=== PATIENT | female | born 1940 | race Caucasian/White ===

== ENCOUNTER 2017-05-13 11:35 | Emergency (ER) | payer MEDICARE, OTHER ==
--- NOTE | 2017-05-13 11:48 | EDM.PDOC ---
<IbethvivianShakila Christiano - Last Filed: 05/13/17 13:21> ED HPI GENERAL MEDICAL PROBLEM - General Chief Complaint: Chest Pain Stated Complaint: SOB Time Seen by Provider: 05/13/17 11:40 Source of Information: Reports: Patient History Limitations: Reports: No Limitations - History of Present Illness INITIAL COMMENTS - FREE TEXT/NARRATIVE: c/o intermittent chest pain for past month , feel SOB at times, and heart racing , Diaphoretic last night while doing dishes last evening. Reported had contacted clinic this am and was told to come to ER, Patient unsure of current medications, and forgot medications at home. No nausea. Ate muffin in car wnroute. Has not taken insulin this am. Onset: Other (month) Location: Reports: Chest Context: Reports: Activity Associated Symptoms: Reports: Diaphoresis (last diamond) Mid-Sternal Chest Pain Score (Numeric/FACES): 2 - Related Data Allergies Allergy/AdvReac Type Severity Reaction Status Date / Time calcium Allergy Muscle Verified 05/13/17 13:03 Aches formaldehyde Allergy Seizure Verified 05/13/17 11:46 hydromorphone Allergy Hallucinati Verified 05/13/17 13:03 ons insulin detemir Allergy Rash Verified 05/13/17 13:03 [From Levemir] Iodinated Contrast- Oral and Allergy Other Verified 05/13/17 13:03 IV Dye mold Allergy Cannot Verified 05/13/17 11:46 Remember sodium phosphate Allergy Cannot Verified 05/13/17 13:03 Remember amoxicillin AdvReac Diarrhea Verified 05/13/17 13:03 tetracycline AdvReac Diarrhea Verified 05/13/17 13:03 Home Meds: Home Meds Fluticasone Propionate [Flovent] 2 spray MAHAMED BID 08/10/15 [History] Isosorbide Mononitrate [Isosorbide Mononitrate ER] 60 mg PO DAILY 08/10/15 [ History] Metoprolol Succinate [Toprol XL] 25 mg PO DAILY 08/10/15 [History] Omeprazole 20 mg PO BID PRN 08/10/15 [History] Pravastatin [Pravachol] 20 mg PO BEDTIME 08/10/15 [History] Venlafaxine HCl [Venlafaxine ER] 2 cap PO BEDTIME 08/10/15 [History] Acetaminophen [Acetaminophen 8 Hour] 650 mg PO BID 05/13/17 [History] Acetaminophen with Codeine [Tylenol with Codeine #3 Tablet] 1 - 2 each PO Q6H PRN 05/13/17 [History] Albuterol [IMW: Albuterol HFA] 2 puff INH QID 05/13/17 [History] Fenofibrate Nanocrystallized [Fenofibrate] 48 mg PO DAILY 05/13/17 [History] Insulin Aspart [Novolog] 8 - 12 unit SQ TID 05/13/17 [History] Insulin Glargine,Hum.Rec.Anlog [Lantus Solostar] 30 unit SQ DAILY 05/13/17 [ History] Loperamide [Imodium] 1 cap PO BID PRN 05/13/17 [History] Loratadine [Claritin] 10 mg PO DAILY 05/13/17 [History] Magnesium Oxide 200 mg PO DAILY 05/13/17 [History] Multivitamin [Multivitamins] 1 each PO DAILY 05/13/17 [History] Nitroglycerin [Nitrostat] 0.4 mg SL ASDIRECTED PRN 05/13/17 [History] [place]-3 Fatty Acids [Maxepa] 1,000 mg PO DAILY 05/13/17 [History] Pramipexole [Mirapex] 0.5 mg PO BEDTIME 05/13/17 [History] Valsartan/Hydrochlorothiazide [Valsartan-Hctz 160-12.5 mg Tab] 1 each PO DAILY 05/13/17 [History] Vitamin B Complex 1 each PO DAILY 05/13/17 [History] Social & Family History - Tobacco Use Smoking Status *Q: Never Smoker Second Hand Smoke Exposure: No - Caffeine Use Caffeine Use: Reports: Coffee - Recreational Drug Use Recreational Drug Use: No ED ROS GENERAL - Review of Systems Constitutional: Reports: No Symptoms HEENT: Reports: No Symptoms Respiratory: Denies: Shortness of Breath, Wheezing Cardiovascular: Reports: Chest Pain, Dyspnea on Exertion, Orthopnea, Palpitations Endocrine: Reports: High Glucose GI/Abdominal: Denies: No Symptoms Musculoskeletal: Reports: Other (ntermittent fibromyalgia pains) Skin: Reports: No Symptoms Neurological: Reports: No Symptoms Psychiatric: Reports: Anxiety ED EXAM, GENERAL - Physical Exam Exam: See Below Exam Limited By: No Limitations General Appearance: Alert, No Apparent Distress, Anxious Eye Exam: Bilateral Eye: PERRL Nose: Normal Inspection Throat/Mouth: Normal Inspection Head: Atraumatic, Normocephalic Neck: Normal Inspection Respiratory/Chest: No Respiratory Distress, Lungs Clear Cardiovascular: Normal Peripheral Pulses, Regular Rate, Rhythm (monitor junctional rate 58-60). No: Systolic Murmur GI/Abdominal: Normal Bowel Sounds, Soft, Non-Tender Back Exam: Normal Inspection, Full Range of Motion Neurological: Alert, Oriented Psychiatric: Anxious, Flat Affect Skin Exam: Warm, Dry, Intact, Normal Color Course - Vital Signs Last Recorded V/S: Last Vital Signs Temp 35.5 C 05/13/17 11:39 Pulse 54 L 05/13/17 13:06 Resp 20 05/13/17 13:06 BP 118/59 L 05/13/17 13:06 Pulse Ox 95 05/13/17 13:06 - Orders/Labs/Meds Orders: Active Orders 24 hr Category Date Time Status EKG 12 Lead [EKG Documentation Completion] [] URGENT Care 05/13/17 11:44 Active Glucose [Blood Glucose Check, Bedside] [] ONETIME Care 05/13/17 11:49 Active Sodium Chloride 0.9% [Normal Saline] 1,000 ml Med 05/13/17 11:57 Active IV .BOLUS Medication Orders Sodium Chloride (Normal Saline) 1,000 mls @ 25 mls/hr IV .BOLUS ONE Stop: 05/15/17 03:56 Last Admin: 05/13/17 12:20 Dose: 25 mls/hr Labs: Laboratory Tests 05/13/17 05/13/17 05/13/17 Range/Units 11:52 11:52 11:52 WBC 8.1 (5.0-10.0) 10^3/uL RBC 3.76 L (4.2-5.4) 10^6/uL Hgb 11.7 L (12.0-16.0) g/dL Hct 37.0 (37.0-47.0) % MCV 98.4 (80-100) fL MCH 31.1 (27.0-34.0) pg MCHC 31.6 L (33.0-35.0) g/dL Plt Count 225 (150-450) 10^3/uL Neut % (Auto) 52.6 (42.2-75.2) % Lymph % (Auto) 29.0 (20.5-50.1) % [place] % (Auto) 10.6 H (2-8) % Eos % (Auto) 7.4 H (1.0-3.0) % Baso % (Auto) 0.4 (0.0-1.0) % PT 10.4 (9.0-12.0) SEC INR 1.0 (0.9-1.2) Sodium 136 (135-145) mmol/L Potassium 5.1 H (3.6-5.0) mmol/L Chloride 100 L (101-111) mmol/L Carbon Dioxide 24.0 (21.0-31.0) mmol/L Anion Gap 17.1 BUN 45 H (7-18) mg/dL Creatinine 2.1 H (0.6-1.3) mg/dL Est Cr Clr Drug Dosing 17.74 mL/min Estimated GFR (MDRD) 23 BUN/Creatinine Ratio 21.42 Glucose 359 H (74-105) mg/dL POC Glucose (83-110) mg/dl Calcium 9.1 (8.4-10.2) mg/dl Magnesium 1.6 L (1.8-2.5) mg/dL Total Bilirubin 0.6 (0.2-1.0) mg/dL AST 33 (10-42) IU/L ALT 28 (10-60) IU/L Alkaline Phosphatase 38 L (42-121) IU/L Troponin I < 0.02 (0.00-0.02) ng/ml B-Natriuretic Peptide 353 H (0-100) pg/ml Total Protein 6.4 L (6.7-8.2) g/dl Albumin 3.7 (3.2-5.5) g/dl Globulin 2.7 Albumin/Globulin Ratio 1.37 TSH, Ultra Sensitive (0.35-7.0) uIu/mL 05/13/17 05/13/17 05/13/17 Range/Units 11:52 11:55 13:18 WBC (5.0-10.0) 10^3/uL RBC (4.2-5.4) 10^6/uL Hgb (12.0-16.0) g/dL Hct (37.0-47.0) % MCV (80-100) fL MCH (27.0-34.0) pg MCHC (33.0-35.0) g/dL Plt Count (150-450) 10^3/uL Neut % (Auto) (42.2-75.2) % Lymph % (Auto) (20.5-50.1) % [place] % (Auto) (2-8) % Eos % (Auto) (1.0-3.0) % Baso % (Auto) (0.0-1.0) % PT (9.0-12.0) SEC INR (0.9-1.2) Sodium (135-145) mmol/L Potassium (3.6-5.0) mmol/L Chloride (101-111) mmol/L Carbon Dioxide (21.0-31.0) mmol/L Anion Gap BUN (7-18) mg/dL Creatinine (0.6-1.3) mg/dL Est Cr Clr Drug Dosing mL/min Estimated GFR (MDRD) BUN/Creatinine Ratio Glucose (74-105) mg/dL POC Glucose 361 H 291 H (83-110) mg/dl Calcium (8.4-10.2) mg/dl Magnesium (1.8-2.5) mg/dL Total Bilirubin (0.2-1.0) mg/dL AST (10-42) IU/L ALT (10-60) IU/L Alkaline Phosphatase (42-121) IU/L Troponin I (0.00-0.02) ng/ml B-Natriuretic Peptide (0-100) pg/ml Total Protein (6.7-8.2) g/dl Albumin (3.2-5.5) g/dl Globulin Albumin/Globulin Ratio TSH, Ultra Sensitive 3.20 (0.35-7.0) uIu/mL Meds: Medications Generic Name Dose Route Start Last Admin Trade Name Freq PRN Reason Stop Dose Admin Sodium Chloride 1,000 mls @ 25 mls/hr 05/13/17 11:57 05/13/17 12:20 Normal Saline IV 05/15/17 03:56 25 mls/hr .BOLUS ONE Administration Discontinued Medications Generic Name Dose Route Start Last Admin Trade Name Freq PRN Reason Stop Dose Admin Aspirin 324 mg 05/13/17 11:50 05/13/17 11:55 Aspirin PO 05/13/17 11:51 324 mg ONETIME ONE Administration Insulin Human Regular 10 unit 05/13/17 11:59 05/13/17 12:16 Humulin R SUBCUT 05/13/17 12:00 10 unit ONETIME ONE Administration Protocol Nitroglycerin 0.4 mg 05/13/17 11:56 05/13/17 13:05 Nitrostat SL 05/13/17 11:57 Not Given ONETIME ONE - Re-Assessments/Exams Free Text/Narrative Re-Assessment/Exam: 05/13/17 12:22 Report pain improved, though still rates2-3/10. No nausea. 05/13/17 13:[address] [facility], recommendation to refer to patient svcs mgr for further workup of exertional angina. Lorelei's primary patient svcs mgr and records are at [facility] and [facility]. 05/13/17 13:21 Transfer of care to Laron Huff PA-c with shift change. Departure - Departure Disposition: Home, Self-Care 01 Clinical Impression: Atypical chest pain, Kidney disease, Junctional rhythm Forms: Interfacility Transfer EMTALA Care Plan Goals: Discussed the history, examination, lab, EKG, x-ray and treatments with Dr. Haines. Dr. Haines accepted the patient for continued evaluation and further management. The patient will be transported by [facility]. <Donell Huff - Last Filed: 05/13/17 14:12> ED ROS GENERAL - Review of Systems Review Of Systems: See Below : Reports: No Symptoms Musculoskeletal: Reports: No Symptoms Hematologic/Lymphatic: Reports: No Symptoms Immunologic: Reports: No Symptoms Departure - Departure Time of Disposition: 14:08 Condition: Poor
[2017-05-13] MEDS ORDERED: Aspirin 81 MG Tab.Chew PO ONE (11:50)
[2017-05-13] MEDS ORDERED: Nitroglycerin 0.4 MG Tab.SL SL ONE (11:56)
[2017-05-13] MEDS ORDERED: Sodium Chloride 0.9% 1,000 ML IV ONE (11:57)
[2017-05-13] MEDS ORDERED: Insulin Regular, Human 100 Units/ML 3 ML Vial SUBCUT ONE (11:59)
[2017-05-13 12:19] LABS: CHLORIDE,CL 100 mmol/L (101-111); SODIUM,NA 136 mmol/L (135-145)
--- NOTE | 2017-05-13 12:29 | CR ---
Clinical history: 76-year-old female chest pain. Interpretation: No acute new cardiopulmonary abnormality identified since January 2016 exam. Normal cardiac silhouette without alveolar edema or dependent effusion (calcifications arch of the a giovani). No new lung mass, hilar lymphadenopathy or focal lobar pneumonia. No pneumothorax. CONCLUSION: No acute cardiopulmonary abnormality.
[2017-05-14 10:35] VITALS: BP 101/50
--- NOTE | 2017-06-03 12:45 | EKG ---
05/13/2016 - MARKIE GARCIA 12-lead EKG shows normal sinus rhythm with junctional rhythm. Bradycardia with heart rate of 57. Nonspecific ST-T wave changes noted on leads V2, V3, and also lead II. [facility] /[id number]
== END 2017-05-13 14:40 | disposition home or self-care (01) ==
LOC: DL.ED 11:35
DX: R07.89 Other chest pain (principal); I49.9 Cardiac arrhythmia, unspecified; N28.9 Disorder of kidney and ureter, unspecified; Z88.5 Allergy status to narcotic agent; Z88.8 Allergy status to other drugs, medicaments and biological substances; Z91.041 Radiographic dye allergy status; Z88.1 Allergy status to other antibiotic agents; Z79.899 Other long term (current) drug therapy; Z79.4 Long term (current) use of insulin
CPT/HCPCS: 36415; 71010; 80053; 82962; 83735; 83880; 84443; 84484; 85025; 85610; 93005; 96372; 99285; A9270; J1815; J7030; 93010

== ENCOUNTER 2018-08-28 12:44 | Emergency (ER) | payer MEDICARE, OTHER ==
--- NOTE | 2018-08-28 13:03 | EDM.PDOC ---
ED HPI GENERAL MEDICAL PROBLEM - General Chief Complaint: Cardiovascular Problem Stated Complaint: HIGH BP [id number] Time Seen by Provider: 08/28/18 13:02 Source of Information: Reports: Patient, Family (), Old Records, RN, RN Notes Reviewed History Limitations: Reports: No Limitations - History of Present Illness INITIAL COMMENTS - FREE TEXT/NARRATIVE: Pt presents with request for BP check. She sees Dr. Talavera in clinic for BP management and had medication adjusted and added about 6 weeks ago. Pt states that she has no symptoms, and feels fine but is very anxious about having a stroke. Her BP's have been running 140/60's to 170/80's according to her home BP record. She came to the ER today because on a couple of occasions she has found numbers of 202/100. Onset: Unknown/Unsure Duration: Chronic Location: Reports: Generalized Quality: Reports: Other (Denies pain) Severity: Moderate Improves with: Reports: None Worsens with: Reports: Other (Anxiety) Associated Symptoms: Reports: No Other Symptoms - Related Data Allergies Allergy/AdvReac Type Severity Reaction Status Date / Time calcium Allergy Muscle Verified 08/28/18 12:50 Aches formaldehyde Allergy Seizure Verified 08/28/18 12:50 hydromorphone Allergy Hallucinati Verified 08/28/18 12:50 ons insulin detemir Allergy Rash Verified 08/28/18 12:50 [From Levemir] Iodinated Contrast- Oral and Allergy Other Verified 08/28/18 12:50 IV Dye mold Allergy Cannot Verified 08/28/18 12:50 Remember sodium phosphate Allergy Cannot Verified 08/28/18 12:50 Remember amoxicillin AdvReac Diarrhea Verified 08/28/18 12:50 tetracycline AdvReac Diarrhea Verified 08/28/18 12:50 Home Meds: Home Meds Fluticasone Propionate [Flovent] 2 spray MAHAMED BID 08/10/15 [History] Isosorbide Mononitrate [Isosorbide Mononitrate ER] 60 mg PO DAILY 08/10/15 [ History] Metoprolol Succinate [Toprol XL] 25 mg PO DAILY 08/10/15 [History] Omeprazole 20 mg PO BID PRN 08/10/15 [History] Pravastatin [Pravachol] 20 mg PO BEDTIME 08/10/15 [History] Venlafaxine HCl [Venlafaxine ER] 2 cap PO BEDTIME 08/10/15 [History] Acetaminophen [Acetaminophen 8 Hour] 650 mg PO BID 05/13/17 [History] Acetaminophen with Codeine [Tylenol with Codeine #3 Tablet] 1 - 2 each PO Q6H PRN 05/13/17 [History] Albuterol [IMW: Albuterol HFA] 2 puff INH QID 05/13/17 [History] Fenofibrate Nanocrystallized [Fenofibrate] 48 mg PO DAILY 05/13/17 [History] Insulin Aspart [Novolog] 8 - 12 unit SQ TID 05/13/17 [History] Insulin Glargine,Hum.Rec.Anlog [Lantus Solostar] 30 unit SQ DAILY 05/13/17 [ History] Loperamide [Imodium] 1 cap PO BID PRN 05/13/17 [History] Loratadine [Claritin] 10 mg PO DAILY 05/13/17 [History] Magnesium Oxide 200 mg PO DAILY 05/13/17 [History] Multivitamin [Multivitamins] 1 each PO DAILY 05/13/17 [History] Nitroglycerin [Nitrostat] 0.4 mg SL ASDIRECTED PRN 05/13/17 [History] [place]-3 Fatty Acids [Maxepa] 1,000 mg PO DAILY 05/13/17 [History] Pramipexole [Mirapex] 0.5 mg PO BEDTIME 05/13/17 [History] Valsartan/Hydrochlorothiazide [Valsartan-Hctz 160-12.5 mg Tab] 1 each PO DAILY 05/13/17 [History] Vitamin B Complex 1 each PO DAILY 05/13/17 [History] Past Medical History HEENT History: Reports: Other (See Below) Other HEENT History: "2 bleeders in eye" Cardiovascular History: Reports: High Cholesterol, Hypertension Respiratory History: Reports: Asthma, Bronchitis, Recurrent Genitourinary History: Reports: Chronic Renal Insuffiency 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: Neurological History: Reports: Seizure Psychiatric History: Reports: Anxiety, Depression Endocrine/Metabolic History: Reports: Diabetes, Type II Hematologic History: Reports: None Immunologic History: Reports: None Oncologic (Cancer) History: Reports: None Dermatologic History: Reports: None - Past Surgical History HEENT Surgical History: Reports: Adenoidectomy, Tonsillectomy GI Surgical History: Reports: Cholecystectomy, Colostomy Female Surgical History: Reports: Section, D&C Musculoskeletal Surgical History: Reports: Other (See Below) Other Musculoskeletal Surgeries/Procedures:: right trochanter repair Social & Family History - Family History Family Medical History: Noncontributory - Caffeine Use Caffeine Use: Reports: Coffee - Living Situation & Occupation Living situation: Reports: , with Spouse Occupation: Retired ED ROS GENERAL - Review of Systems Review Of Systems: ROS reveals no pertinent complaints other than HPI. ED EXAM, GENERAL - Physical Exam Exam: See Below Exam Limited By: No Limitations General Appearance: Alert, WD/WN, No Apparent Distress, Anxious Eye Exam: Bilateral Eye: Normal Inspection Ears: Hearing Grossly Normal Nose: Normal Inspection Throat/Mouth: Normal Inspection, Normal Voice, No Airway Compromise Head: Atraumatic, Normocephalic Neck: Normal Inspection Respiratory/Chest: No Respiratory Distress, Lungs Clear, Normal Breath Sounds, No Accessory Muscle Use, Chest Non-Tender Cardiovascular: Regular Rate, Rhythm, No Edema Extremities: Normal Inspection, Normal Range of Motion, Non-Tender, Normal Capillary Refill, No Pedal Edema Neurological: Alert, Oriented, Normal Cognition, No Motor/Sensory Deficits Psychiatric: Anxious Skin Exam: Warm, Dry, Intact, Normal Color, No Rash Course - Vital Signs Last Recorded V/S: Last Vital Signs Temp 36.4 C 08/28/18 13:28 Pulse 88 08/28/18 13:28 Resp 16 08/28/18 13:28 BP 155/68 H 08/28/18 13:28 Pulse Ox 98 08/28/18 13:28 - Re-Assessments/Exams Free Text/Narrative Re-Assessment/Exam: 08/28/18 14:24 I discussed pt's current medication regime, and explained that given her recent BP range that I would not recommend changing or adjusting her medications in the setting of the ER. She has isolated HTN with sBP 140 to 170 and dBP 60's to 80's. She has no symptoms. I advised her to f/u in clinic with Dr. Talavera. Departure - Departure Time of Disposition: 14:08 Disposition: Home, Self-Care 01 Condition: Good Clinical Impression: Systolic hypertension, isolated Instructions: Hypertension, [id number], Preventing Hypertension Forms: ED Department Discharge Additional Instructions: Continue your current medications as prescribed. Follow up in clinic with your doctor this week for blood pressure recheck.
[2018-08-28 13:29] VITALS: BP 155/68
== END 2018-08-28 14:36 | disposition home or self-care (01) ==
LOC: DL.ED 12:44
DX: I12.9 Hypertensive chronic kidney disease with stage 1 through stage 4 chronic kidney disease, or unspecified chronic kidney disease (principal); N18.9 Chronic kidney disease, unspecified; E11.22 Type 2 diabetes mellitus with diabetic chronic kidney disease; Z91.041 Radiographic dye allergy status; Z79.899 Other long term (current) drug therapy; Z88.1 Allergy status to other antibiotic agents; Z88.8 Allergy status to other drugs, medicaments and biological substances; Z79.4 Long term (current) use of insulin
CPT/HCPCS: 99283

== ENCOUNTER → 2019-04-20 | Outpatient (CLI) | payer MEDICARE, OTHER ==
--- NOTE | 2019-04-20 17:05 | MR ---
Cartilage: 78-year-old 176 pound diabetic female with stage IV kidney disease and back pain (frequent falls). TECHNIQUE: Sequential T1/T2/T2 fat saturation and unenhanced axial T1/T2 magnetic resonance images of the lumbar spine obtained with the patient lying supine on the [employer] 1.5 Carrie [employer] magnet [place], [place]. All data archived in the PACS system for storage, reformatting and study. Interpretation: Abnormal. 1. Signs of chronic multilevel disc degeneration with desiccation and flattening nucleus pulposus intervertebral discs from L2 through S1 but particularly severe L3-4 level. Anterior (nonclinical) disc herniation multiple levels as well. 2. *Posterior midline (central) and paracentrally (bilateral) intraligamentous disc herniation at the L3-4 level. 3. Prominent annular subligamentous disc "bulge" posteriorly at the L2-3 and L4-5 levels above and below the herniated disc. 4. No sign of pathologic skeletal lesion, lumbar fracture or dislocation. 5. No extruded "free" intracanalicular disc fragment. No intracanalicular soft tissue tumor mass, congenital nerve root cysts or adhesions of the cauda equina. CONCLUSION: Chronic multilevel disc degeneration. No fracture or dislocation lumbar spine. Large disc herniation L3-4 level (recommend correlate of lateral plain film to accurately assess level of disc herniation)
== END ==
LOC: DL.MRI 12:52
PROVIDERS: ATTEND Internal Medicine
DX: M54.5 Low back pain (principal); M51.36 Other intervertebral disc degeneration, lumbar region; M51.26 Other intervertebral disc displacement, lumbar region
CPT/HCPCS: 72148

== ENCOUNTER 2021-04-16 23:35 | Emergency (ER) | payer MEDICARE, OTHER ==
[2021-04-17] MEDS ORDERED: Ondansetron 4 MG/2 ML SDV IV ONE ×2 (00:08→12:36)
[2021-04-17] MEDS ORDERED: Morphine 4 MG/ML Syringe IVPUSH ONE ×2 (00:09→01:59)
[2021-04-17] MEDS: Sodium Chloride 0.9% 10 ML Syringe FLUSH PRN ×4 (00:15→12:44)
[2021-04-17 00:40] LABS: PTT,PARTIAL THROMBOPLSTIN TIME 23.5 SEC (22.0-34.0)
--- NOTE | 2021-04-17 01:46 | CT ---
PROCEDURE INFORMATION: Exam: CT Abdomen And Pelvis Without Contrast Exam date and time: 04/17/2021 12:36 AM Age: 80 years old Clinical indication: Abdominal pain; Localized; Lower; Prior surgery; Surgery date: <1 month; Surgery type: Colostomy 04/06/21; Patient HX: Cholecystectomy, appendectomy, hysterectomy, ; additional info: Colostomy abd pain distention rectal bleeding TECHNIQUE: Imaging protocol: Computed tomography of the abdomen and pelvis without contrast. Radiation optimization: All CT scans at this facility use at least one of these dose optimization techniques: automated exposure control; mA and/or kV adjustment per patient size (includes targeted exams where dose is matched to clinical indication); or iterative reconstruction. COMPARISON: CT Abdomen Pelvis wo Cont 12/16/2020 1:21 PM FINDINGS: Lungs: Lung bases are clear of infiltrates and consolidation. Pleural spaces: No pleural effusions. Heart: Normal heart size. No pericardial effusion. Liver: The liver is normal in size, contour and attenuation. Gallbladder and bile ducts: Previous cholecystectomy. Post cholecystectomy common bile duct measuring 12 mm. This is slightly dilated. No distal obstructing lesion evident. Pancreas: The pancreas is normal in contour and attenuation. Spleen: The spleen is normal in size, contour, and enhancement. Adrenal glands: A right adrenal nodule is noted measuring 23 x 19 mm. This has intrinsic fat consistent with a lipid rich adenoma. No change since 12/16/2020. Right adrenal gland is normal. Kidneys and ureters: Bilateral renal parenchymal atrophy of mild severity. Suggestion of bilateral renal cysts. 19 mm right renal cyst. Partially exophytic midpole lateral 12 mm left renal cyst. Right kidney has a variant horizontal axis. These areas of suspected cysts are stable since 12/16/2020. No hydronephrosis, renal calculi, or acute renal inflammation. Stomach and bowel: Gastric morphology is unremarkable. No edema. No gastric outlet obstruction. Small hiatal hernia. Small bowel loops are nondistended. No obstruction evident. There is a parastomal hernia in the left abdominal wall with small bowel within the hernia adjacent to a colostomy. No evidence of small-bowel obstruction or strangulation. Previous distal left colon resection and left lower abdominal wall colostomy. Previous partial resection of the right colon with an anastomotic staple line. Currently, there are features of sigmoid diverticulitis. There is evidence of perforation with an abscess. The abscess in the deep central pelvis is 7 x 4.2 cm. See axial series 2, image 96. Appendix: No evidence of appendicitis. History of appendectomy. Intraperitoneal space: No free fluid or free air. Vasculature: Unremarkable. No abdominal aortic aneurysm. Lymph nodes: Unremarkable. No enlarged lymph nodes. Urinary bladder: Urinary bladder is unremarkable. Reproductive: Previous hysterectomy. Bones/joints: Degenerative lumbar spine disease. Moderate spinal stenosis at L3-L4. Mild spinal stenosis at L4-L5. Soft tissues: Ventral supraumbilical abdominal wall hernia containing fat. 3.4 cm diameter. No evidence of strangulation. IMPRESSION: 1. Sigmoid diverticulitis with perforation and deep pelvic abscess measuring approximately 7 x 4 cm. 2. Previous distal left colon resection with left lower abdominal wall colostomy. Previous partial resection of the right colon with an anastomotic staple line. 3. 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 No evidence of small-bowel obstruction or strangulation. 4. Previous cholecystectomy. Nonspecific distal common bile duct dilatation to approximately 12 mm is likely reflective of the post cholecystectomy status. No obstructing lesion evident. 5. Mild renal atrophy. Bilateral renal cysts are suggested. No further imaging follow-up is recommended based on MIPS criteria. 6. Degenerative lumbar spine disease. Moderate spinal stenosis at L3-L4. Posterior disc bulge of approximately 8 mm. COMMENTS: 1. Consistent with the [employer]'s Incidental Findings Committee white paper (J Am Zachary Radiol 2017): For any incidental adrenal lesion greater than 1 cm but less than 4 cm classified in this report as benign, likely benign, or containing fat (including classification as an adenoma or myelolipoma), no follow-up imaging is recommended per consensus recommendations based on imaging criteria. Further lab evaluation could be pursued if warranted based on clinical findings. 2. Consistent with the [place] [employer]'s Incidental Findings Committee white paper (J Am Zachary Radiol 2018): Any incidental renal lesion less than 1 cm or classified as too small to characterize, or any incidental cystic renal lesion characterized as simple-appearing, is likely benign. No follow-up imaging is recommended for these lesions per consensus recommendations based on imaging criteria.
[2021-04-17] MEDS ORDERED: Piperacillin/Tazobactam 2.25 GM in Sodium Chloride 0.9% 50 ML IV ONE ×2 (01:48→08:00)
[2021-04-17] MEDS ORDERED: Lactated Ringers 1,000 ML IV ONE (01:50)
--- NOTE | 2021-04-17 01:57 | EDM.PDOC ---
ED HPI GENERAL MEDICAL PROBLEM - General Chief Complaint: Gastrointestinal Problem Stated Complaint: PASSING BLOOD CLOTS AFTER SURGERY Time Seen by Provider: 04/16/21 23:40 Source of Information: Reports: Patient History Limitations: Reports: No Limitations - History of Present Illness INITIAL COMMENTS - FREE TEXT/NARRATIVE: Patient comes emergency department today with complaints of abdominal pain and rectal bleeding. This patient is a rather poor historian at best. What I can get on her initial presentation is that she has had a diverting colostomy that was completed somewhere many years ago due to the concerns of high risk colon cancer in a large amount of colon polyps. Although she did not have her colon removed because she still has to have colonoscopies on a regular basis to observe for the presence of any colon cancer. 04/06/2021 she had a colonoscopy through her rectum to look for the presence of colon cancer because she has recurrent polyps in the area that was not removed from her colostomy previously. They were unable to complete her colonoscopy because there was a large amount of mucus in stool she reports in there. Since that time she has had i ntermittent rectal bleeding since her colonoscopy. She actually saw her surgeon today in the clinic who was unconcerned about the rectal bleeding she has also had abdominal pain bloating and distention over the past couple of days and nausea. Tonight when she was sitting at home on the couch she suddenly had a large amount of clots come from her rectum. She has continued abdominal pain distention. She has normal amount of stool output from her colostomy. No bleeding from her colostomy. No vomiting. No hematuria dysuria or urinary frequency. No fever no chills. No chest pain no shortness of breath or difficulty breathing. No cough or congestion. She denies taking any anticoagulation medications or antiplatelet medications. Although she really does not know what she takes on the daily basis either. Abdomen Pain Score (Numeric/FACES): 8 - Related Data Allergies Allergy/AdvReac Type Severity Reaction Status Date / Time calcium Allergy Muscle Verified 04/16/21 23:40 Aches formaldehyde Allergy Seizure Verified 04/16/21 23:40 hydromorphone Allergy Hallucinati Verified 04/16/21 23:40 ons insulin detemir Allergy Rash Verified 04/16/21 23:40 [From Levemir] Iodinated Contrast Media Allergy Other Verified 04/16/21 23:40 [Iodinated Contrast- Oral and IV Dye] mold Allergy Cannot Verified 04/16/21 23:40 Remember sodium phosphate Allergy Cannot Verified 04/16/21 23:40 Remember amoxicillin AdvReac Diarrhea Verified 04/16/21 23:40 tetracycline AdvReac Diarrhea Verified 04/16/21 23:40 Home Meds: Home Meds Fluticasone Propionate [Flovent] 2 spray MAHAMED BID 08/10/15 [History] Isosorbide Mononitrate [Isosorbide Mononitrate ER] 60 mg PO DAILY 08/10/15 [History] Metoprolol Succinate [Toprol XL] 25 mg PO DAILY 08/10/15 [History] Omeprazole 20 mg PO BID PRN 08/10/15 [History] Pravastatin [Pravachol] 20 mg PO BEDTIME 08/10/15 [History] Venlafaxine HCl [Venlafaxine ER] 2 cap PO BEDTIME 08/10/15 [History] Acetaminophen [Acetaminophen 8 Hour] 650 mg PO BID 05/13/17 [History] Acetaminophen with Codeine [Tylenol with Codeine #3 Tablet] 1 - 2 each PO Q6H PRN 05/13/17 [History] Albuterol [IMW: Albuterol HFA] 2 puff INH QID PRN 05/13/17 [History] Fenofibrate Nanocrystallized [Fenofibrate] 48 mg PO DAILY 05/13/17 [History] Insulin Aspart [Novolog] 8 - 12 unit SQ TID 05/13/17 [History] Insulin Glargine,Hum.Rec.Anlog [Lantus Solostar] 30 unit SQ DAILY 05/13/17 [History] Loperamide [Imodium] 1 cap PO BID PRN 05/13/17 [History] Loratadine [Claritin] 10 mg PO DAILY 05/13/17 [History] Magnesium Oxide 200 mg PO DAILY 05/13/17 [History] Multivitamin [Multivitamins] 1 each PO DAILY 05/13/17 [History] Nitroglycerin [Nitrostat] 0.4 mg SL ASDIRECTED PRN 05/13/17 [History] [place]-3 Fatty Acids [Maxepa] 1,000 mg PO DAILY 05/13/17 [History] Pramipexole [Mirapex] 0.5 mg PO BEDTIME 05/13/17 [History] Valsartan/Hydrochlorothiazide [Valsartan-Hctz 160-12.5 mg Tab] 1 each PO DAILY 05/13/17 [History] Vitamin B Complex 1 each PO DAILY 05/13/17 [History] Past Medical History HEENT History: Reports: Other (See Below) Other HEENT History: "2 bleeders in eye" Cardiovascular History: Reports: High Cholesterol, Hypertension Respiratory History: Reports: Asthma, Bronchitis, Recurrent Genitourinary History: Reports: Chronic Renal Insuffiency 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 HAND History: Reports: Neurological History: Reports: Seizure Psychiatric History: Reports: Anxiety, Depression Endocrine/Metabolic History: Reports: Diabetes, Type II Hematologic History: Reports: None Immunologic History: Reports: None Oncologic (Cancer) History: Reports: None Dermatologic History: Reports: None - Infectious Disease History Infectious Disease History: Reports: Measles, Mumps - Past Surgical History HEENT Surgical History: Reports: Adenoidectomy, Tonsillectomy GI Surgical History: Reports: Cholecystectomy, Colostomy Female Surgical History: Reports: Section, D&C Musculoskeletal Surgical History: Reports: Other (See Below) Other Musculoskeletal Surgeries/Procedures:: right trochanter repair Social & Family History - Family History Family Medical History: No Pertinent Family History - Tobacco Use Tobacco Use Status *Q: Never Tobacco User Second Hand Smoke Exposure: No - Caffeine Use Caffeine Use: Reports: Coffee - Recreational Drug Use Recreational Drug Use: No - Living Situation & Occupation Living situation: Reports: , with Spouse Occupation: Retired ED ROS GENERAL - Review of Systems Review Of Systems: Comprehensive ROS is negative, except as noted in HPI. ED EXAM, GI/ABD - Physical Exam Exam: See Below Exam Limited By: No Limitations General Appearance: Alert, WD/WN, No Apparent Distress Ears: Normal External Exam Nose: Normal Inspection Throat/Mouth: Normal Inspection, Normal Lips, Normal Oropharynx, Normal Voice Head: Atraumatic, Normocephalic Neck: Normal Inspection, Supple, Non-Tender, Full Range of Motion Respiratory/Chest: No Respiratory Distress, Lungs Clear, Normal Breath Sounds, No Accessory Muscle Use, Chest Non-Tender Cardiovascular: Normal Peripheral Pulses, Regular Rate, Rhythm GI/Abdominal Exam: Normal Bowel Sounds, Distended, Guarding (Throughout her abdomen primarily left lower quadrant.), Rebound (Rebound tenderness to left lower quadrant.), Other (She does have a left upper quadrant colostomy with fecal matter in the bag. No gross blood.). No: Rigid (Female) Exam: Deferred Rectal (Female) Exam: Deferred Back Exam: Normal Inspection, Full Range of Motion Extremities: Normal Inspection, Normal Range of Motion, Non-Tender, No Pedal Edema, Normal Capillary Refill Neurological: Alert, Oriented, Normal Cognition, No Motor/Sensory Deficits Psychiatric: Normal Affect, Normal Mood Skin Exam: Dry, Intact, No Rash, Cool, Pallor Course - Vital Signs Last Recorded V/S: Last Vital Signs Temp 98.6 F 04/17/21 13:59 Pulse 79 04/17/21 13:59 Resp 18 04/17/21 13:59 BP 144/62 H 04/17/21 13:59 Pulse Ox 94 L 04/17/21 13:59 - Orders/Labs/Meds Orders: Active Orders 24 hr Category Date Time Status CULTURE BLOOD [BC] Stat Lab 04/17/21 02:38 Received CULTURE BLOOD [BC] Stat Lab 04/17/21 02:42 Received Blood Culture x2 Reflex Set [OM.PC] Stat Oth 04/17/21 02:28 Ordered Peripheral IV Insertion Adult [OM.PC] Stat Oth 04/17/21 00:04 Ordered Labs: Laboratory Tests 04/16/21 04/16/21 04/16/21 Range/Units 23:43 23:43 23:43 WBC 13.1 H (5.0-10.0) 10^3/uL RBC 3.29 L (4.2-5.4) 10^6/uL Hgb 9.8 L D (12.0-16.0) g/dL Hct 31.5 L (37.0-47.0) % MCV 95.7 (80-100) fL MCH 29.8 (27.0-34.0) pg MCHC 31.1 L (33.0-35.0) g/dL Plt Count 448 D (150-450) 10^3/uL Neut % (Auto) 81.3 H (42.2-75.2) % Lymph % (Auto) 12.9 L (20.5-50.1) % Jenkins % (Auto) 4.7 (2-8) % Eos % (Auto) 0.9 L (1.0-3.0) % Baso % (Auto) 0.2 (0.0-1.0) % PT 11.4 (9.0-12.0) SEC INR 1.1 (0.9-1.2) APTT 23.5 (22.0-34.0) SEC Sodium 138 (136-145) mmol/L Potassium 4.0 (3.5-5.1) mmol/L Chloride 99 (98-107) mmol/L Carbon Dioxide 26 (21-32) mmol/L Anion Gap 17.0 H (7-13) mEq/L BUN 36 H (7-18) mg/dL Creatinine 2.21 H (0.55-1.02) mg/dL Est Cr Clr Drug Dosing 15.07 mL/min Estimated GFR (MDRD) 21 BUN/Creatinine Ratio 16.3 (No establ ref range) Glucose 214 H (70-99) mg/dL Lactic Acid (0.4-2.0) mmol/L Calcium 9.0 (8.5-10.1) mg/dL Total Bilirubin 0.2 (0.2-1.0) mg/dL AST 14 L (15-37) U/L ALT 25 (14-59) U/L Alkaline Phosphatase 55 (46-116) U/L C-Reactive Protein 4.6 H (0.0-0.9) mg/dL Total Protein 6.7 (6.4-8.2) g/dL Albumin 3.0 L (3.4-5.0) g/dL Globulin 3.7 Albumin/Globulin Ratio 0.81 04/16/21 04/17/21 Range/Units 23:43 04:41 WBC (5.0-10.0) 10^3/uL RBC (4.2-5.4) 10^6/uL Hgb (12.0-16.0) g/dL Hct (37.0-47.0) % MCV (80-100) fL MCH (27.0-34.0) pg MCHC (33.0-35.0) g/dL Plt Count (150-450) 10^3/uL Neut % (Auto) (42.2-75.2) % Lymph % (Auto) (20.5-50.1) % Jenkins % (Auto) (2-8) % Eos % (Auto) (1.0-3.0) % Baso % (Auto) (0.0-1.0) % PT (9.0-12.0) SEC INR (0.9-1.2) APTT (22.0-34.0) SEC Sodium (136-145) mmol/L Potassium (3.5-5.1) mmol/L Chloride (98-107) mmol/L Carbon Dioxide (21-32) mmol/L Anion Gap (7-13) mEq/L BUN (7-18) mg/dL Creatinine (0.55-1.02) mg/dL Est Cr Clr Drug Dosing mL/min Estimated GFR (MDRD) BUN/Creatinine Ratio (No establ ref range) Glucose (70-99) mg/dL Lactic Acid 1.4 0.8 (0.4-2.0) mmol/L Calcium (8.5-10.1) mg/dL Total Bilirubin (0.2-1.0) mg/dL AST (15-37) U/L ALT (14-59) U/L Alkaline Phosphatase (46-116) U/L C-Reactive Protein (0.0-0.9) mg/dL Total Protein (6.4-8.2) g/dL Albumin (3.4-5.0) g/dL Globulin Albumin/Globulin Ratio Meds: Medications Discontinued Medications Generic Name Dose Route Start Last Admin Trade Name Freq PRN Reason Stop Dose Admin Piperacillin Sod/Tazobactam 50 mls @ 100 mls/hr 04/17/21 01:48 04/17/21 02:05 Sod 2.25 gm/ Sodium Chloride IV 04/17/21 02:17 100 mls/hr ONETIME ONE Administration Lactated Ringer's 1,000 mls @ 150 mls/hr 04/17/21 01:50 04/17/21 02:33 Ringers, Lactated IV 04/17/21 08:29 150 mls/hr .BOLUS ONE Administration Sodium Chloride Confirm 04/17/21 01:58 04/17/21 08:18 Normal Saline Administered 04/17/21 01:59 Not Given Dose 50 mls @ as directed .ROUTE .STK-MED ONE Piperacillin Sod/Tazobactam 50 mls @ 100 mls/hr 04/17/21 08:00 04/17/21 08:19 Sod 2.25 gm/ Sodium Chloride IV 04/17/21 08:29 100 mls/hr ONETIME ONE Administration Morphine Sulfate 4 mg 04/17/21 00:09 04/17/21 00:18 Morphine 4 Mg/Ml Syringe IVPUSH 04/17/21 00:10 4 mg ONETIME ONE Administration Morphine Sulfate 4 mg 04/17/21 01:59 04/17/21 02:12 Morphine 4 Mg/Ml Syringe IVPUSH 04/17/21 02:00 4 mg ONETIME ONE Administration Morphine Sulfate 4 mg 04/17/21 08:26 04/17/21 08:39 Morphine 2 Mg/Ml Syringe IVPUSH 04/17/21 08:27 4 mg ONETIME ONE Administration Ondansetron HCl 4 mg 04/17/21 00:08 04/17/21 00:15 Ondansetron 4 Mg/2 Ml Sdv IV 04/17/21 00:09 4 mg ONETIME ONE Administration Ondansetron HCl 4 mg 04/17/21 12:36 04/17/21 12:44 Ondansetron 4 Mg/2 Ml Sdv IV 04/17/21 12:37 4 mg ONETIME ONE Administration Sodium Chloride 10 ml 04/17/21 00:04 04/17/21 12:44 Sodium Chloride 0.9% 10 Ml Syringe FLUSH 10 ml ASDIRECTED PRN Administration Keep Vein Open - Radiology Interpretation Free Text/Narrative:: CT abdomen pelvis per radiology shows a sigmoid diverticulitis with perforation and deep pelvic abscess measuring approximately 7 x 4 cm. Previous distal left colon resection with left lower abdominal wall colostomy previous partial resection of the right colon with anastomotic staple line. 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 No evid ence of small bowel obstruction or strangulation. - Re-Assessments/Exams Free Text/Narrative Re-Assessment/Exam: 04/17/21 02:28 Labs drawn. IV established. Zofran and morphine with improvement of nausea and pain. She has a normal lactic acid. CRP mildly elevated. Normal PT/INR. CT abdomen pelvis per radiology is concerning for sigmoid diverticulitis with perforation and a rather impressively large 7 x 4 cm abscess deep in the pelvis. Zosyn 2.25grams renally dosed. LR 500 ml bolus and then 150mls/hr blood cultures x 2. I called and spoke with Dr. Lynch the surgeon in [place] who actually saw the patient today in the clinic and he is unable to accept this patient as they do not have any ICU beds and he feels that she will need a surgery and ICU following the procedure. I then called and spoke with Katerin at [facility] in [place]. HPI ER COURSE findings and concerns were relayed to her verbally over the phone. She did have the CT scan available. She accepted the patient in transfer at this time although they will not have a bed available until the morning. Dr. Conklin is okay with keeping the patient here as she stays stable. Recommends a repeat lactic at 4 hrs and if the patient deteriorates at all to contact her back. I discussed the plan of care with the patient. She is comfortable with this plan and her questions answered. Repeat morphine for pain. Care transfered to [facility] at 0700 at shift change still awaiting a bed at [facility]. Departure - Departure Time of Disposition: 01:56 Disposition: DC/Tfer to Acute Hospital 02 Clinical Impression: Perforation of sigmoid colon due to diverticulitis, Pelvic abscess - Discharge Information Referrals: PCP,None [Primary Care Provider] - Forms: ED Department Discharge Sepsis Event Note (ED) - Evaluation Sepsis Screening Result: No Definite Risk - Focused Exam Vital Signs: Vital Signs Temp Pulse Resp BP Pulse Ox 04/17/21 13:59 98.6 F 79 18 144/62 H 94 L 04/17/21 12:29 97.6 F 78 18 167/77 H 96 04/17/21 10:01 97.6 F 79 16 123/93 H 99 - My Orders Last 24 Hours: My Active Orders 04/17/21 00:04 Peripheral IV Insertion Adult [OM.PC] Stat 04/17/21 02:28 Blood Culture x2 Reflex Set [OM.PC] Stat 04/17/21 02:38 CULTURE BLOOD [BC] Stat 04/17/21 02:42 CULTURE BLOOD [BC] Stat - Assessment/Plan Last 24 Hours: My Active Orders 04/17/21 00:04 Peripheral IV Insertion Adult [OM.PC] Stat 04/17/21 02:28 Blood Culture x2 Reflex Set [OM.PC] Stat 04/17/21 02:38 CULTURE BLOOD [BC] Stat 04/17/21 02:42 CULTURE BLOOD [BC] Stat
[2021-04-17] MEDS ORDERED: Sodium Chloride 0.9% 50 ML ONE (01:58)
[2021-04-17] MEDS ORDERED: Morphine 2 MG/ML SYRINGE IVPUSH ONE (08:26)
[2021-04-17 14:01] VITALS: BP 144/62; PULSE 79
== END 2021-04-17 15:30 ==
LOC: DL.ED 23:35
DX: K57.20 Diverticulitis of large intestine with perforation and abscess without bleeding (principal); E11.22 Type 2 diabetes mellitus with diabetic chronic kidney disease; E78.00 Pure hypercholesterolemia, unspecified; I12.9 Hypertensive chronic kidney disease with stage 1 through stage 4 chronic kidney disease, or unspecified chronic kidney disease; N18.9 Chronic kidney disease, unspecified; Z91.048 Other nonmedicinal substance allergy status; Z88.0 Allergy status to penicillin; Z88.1 Allergy status to other antibiotic agents; Z88.5 Allergy status to narcotic agent; Z91.041 Radiographic dye allergy status
CPT/HCPCS: 36415; 74176; 80053; 83605; 85025; 85610; 85730; 86140; 87040; 96365; 96366; 96375; 96376; 99285; 99285-25; J2270; J2405; J2543; J7120

== ENCOUNTER 2021-12-11 19:26 | Emergency (ER) | payer MEDICARE, OTHER ==
[2021-12-11] MEDS ORDERED: Sodium Chloride 0.9% 10 ML Syringe FLUSH PRN (19:53)
[2021-12-11 20:22] LABS: ANION GAP 14.6 mEq/L (7-13); CHLORIDE,CL 104 mmol/L (98-107); SODIUM,NA 142 mmol/L (136-145)
[2021-12-11 20:32] LABS: CORONAVIRUS COVID-19 NAA NEGATIVE (NEGATIVE)
[2021-12-11] MEDS ORDERED: Magnesium Sulfate/Water 2 GM in Premix Bag 1 BAG IV ONE ×2 (20:51→20:52)
[2021-12-12 01:09] VITALS: BP 187/58; PULSE 50
== END 2021-12-12 01:30 | disposition home or self-care (01) ==
LOC: DL.ED 19:26
DX: I13.0 Hypertensive heart and chronic kidney disease with heart failure and stage 1 through stage 4 chronic kidney disease, or unspecified chronic kidney disease (principal); E11.22 Type 2 diabetes mellitus with diabetic chronic kidney disease; N18.4 Chronic kidney disease, stage 4 (severe); I50.9 Heart failure, unspecified; I25.2 Old myocardial infarction; J45.909 Unspecified asthma, uncomplicated; K21.9 Gastro-esophageal reflux disease without esophagitis; R00.1 Bradycardia, unspecified; Z88.8 Allergy status to other drugs, medicaments and biological substances; Z88.5 Allergy status to narcotic agent; Z88.7 Allergy status to serum and vaccine; Z91.041 Radiographic dye allergy status; Z88.0 Allergy status to penicillin; Z88.1 Allergy status to other antibiotic agents; Z91.048 Other nonmedicinal substance allergy status; Z79.4 Long term (current) use of insulin; Z79.899 Other long term (current) drug therapy; Z20.822 Contact with and (suspected) exposure to COVID-19
CPT/HCPCS: 0240U; 36415; 71045; 80053; 83605; 83735; 83880; 84443; 85025; 86140; 93005; 96365; 96366; 99285; J3475

== ENCOUNTER 2021-12-18 15:20 | Emergency (ER) | payer MEDICARE, OTHER ==
[2021-12-18 17:13] VITALS: BP 154/75; PULSE 52
[2021-12-18 20:32] LABS: ANION GAP 14.9 mEq/L (7-13)
[2021-12-18] MEDS ORDERED: Sodium Chloride 0.9% 1,000 ML IV ONE (20:51)
[2021-12-18] MEDS ORDERED: Magnesium Sulfate/Water 2 GM in Premix Bag 1 BAG IV ONE (20:53)
== END 2021-12-18 21:25 | disposition home or self-care (01) ==
LOC: DL.ED 15:20
DX: S00.83XA Contusion of other part of head, initial encounter (principal); E78.00 Pure hypercholesterolemia, unspecified; E11.22 Type 2 diabetes mellitus with diabetic chronic kidney disease; I12.9 Hypertensive chronic kidney disease with stage 1 through stage 4 chronic kidney disease, or unspecified chronic kidney disease; N18.4 Chronic kidney disease, stage 4 (severe); I25.2 Old myocardial infarction; Z88.5 Allergy status to narcotic agent; Z88.8 Allergy status to other drugs, medicaments and biological substances; Z88.0 Allergy status to penicillin; Z91.041 Radiographic dye allergy status; W18.09XA Striking against other object with subsequent fall, initial encounter
CPT/HCPCS: 36415; 70450; 72125; 80053; 83605; 83735; 83880; 84443; 85025; 93005; 99284-25

== ENCOUNTER 2021-12-21 17:24 | Emergency (ER) | payer MEDICARE, OTHER ==
[2021-12-21 18:53] LABS: ANION GAP 14.1 mEq/L (7-13)
[2021-12-21] MEDS ORDERED: Magnesium Sulfate/Water 2 GM in Premix Bag 1 BAG IV ONE (20:09)
[2021-12-21] MEDS ORDERED: Sodium Chloride 0.9% 1,000 ML IV ONE (20:09)
[2021-12-21] MEDS ORDERED: Sodium Chloride 0.9% 500 ML IV SCH (22:15)
[2021-12-21] MEDS ORDERED: Sodium Chloride 0.9% 500 ML IV ONE (22:15)
[2021-12-21 22:35] LABS: CORONAVIRUS COVID-19 NAA NEGATIVE (NEGATIVE)
[2021-12-21 22:38] VITALS: PULSE 56
[2021-12-21 22:39] VITALS: BP 217/69
[2021-12-21] MEDS ORDERED: Metoclopramide 10 MG/2 ML SDV IVPUSH ONE (23:13)
[2021-12-22] MEDS ORDERED: Sodium Chloride 0.9% 500 ML IV ONE (00:15)
== END 2021-12-21 23:45 | disposition home or self-care (01) ==
LOC: DL.ED 17:24
DX: R11.2 Nausea with vomiting, unspecified (principal); I12.9 Hypertensive chronic kidney disease with stage 1 through stage 4 chronic kidney disease, or unspecified chronic kidney disease; E11.22 Type 2 diabetes mellitus with diabetic chronic kidney disease; N18.4 Chronic kidney disease, stage 4 (severe); R94.4 Abnormal results of kidney function studies; E78.00 Pure hypercholesterolemia, unspecified; I25.2 Old myocardial infarction; K21.9 Gastro-esophageal reflux disease without esophagitis; Z20.822 Contact with and (suspected) exposure to COVID-19
CPT/HCPCS: 0240U; 36415; 74176; 80053; 81001; 83735; 85025; 96365; 96375; 99284; J2765; J3475; J7030; J7040

== ENCOUNTER 2022-06-11 01:36 | Emergency (ER) | payer MEDICARE, OTHER ==
[2022-06-11] MEDS ORDERED: Ondansetron 4 MG/2 ML SDV IVPUSH ONE (01:43)
[2022-06-11 02:07] LABS: ANION GAP 17.6 mEq/L (7-13); CHLORIDE,CL 101 mmol/L (98-107); SODIUM,NA 139 mmol/L (136-145)
[2022-06-11 02:17] LABS: ESTIMATED GFR 16 mL/min (>=60)
[2022-06-11] MEDS ORDERED: GI Cocktail Oral Solution 30 ML PO ONE (02:55)
[2022-06-11] MEDS ORDERED: Metoclopramide 10 MG/2 ML SDV IVPUSH ONE (03:01)
[2022-06-11 06:32] VITALS: BP 205/100; PULSE 102
== END 2022-06-11 06:30 | disposition home or self-care (01) ==
LOC: DL.ED 01:36
DX: R07.9 Chest pain, unspecified (principal); K21.9 Gastro-esophageal reflux disease without esophagitis; R11.2 Nausea with vomiting, unspecified; E78.00 Pure hypercholesterolemia, unspecified; I10 Essential (primary) hypertension; I25.2 Old myocardial infarction; E11.9 Type 2 diabetes mellitus without complications; Z88.8 Allergy status to other drugs, medicaments and biological substances; Z88.0 Allergy status to penicillin; Z88.1 Allergy status to other antibiotic agents; Z91.048 Other nonmedicinal substance allergy status; Z88.5 Allergy status to narcotic agent; Z91.041 Radiographic dye allergy status; Z79.899 Other long term (current) drug therapy; Z79.4 Long term (current) use of insulin; Z86.16 Personal history of COVID-19; Z90.49 Acquired absence of other specified parts of digestive tract; Z90.710 Acquired absence of both cervix and uterus; Z20.822 Contact with and (suspected) exposure to COVID-19
CPT/HCPCS: 36415; 71045; 74176; 80053; 83605; 83880; 84484; 85025; 85379; 93005; 96374; 96375; 99285; A9270; J2405; J2765; U0002

== ENCOUNTER 2022-10-28 15:13 | Emergency (ER) | payer MEDICARE, OTHER ==
[2022-10-28] MEDS ORDERED: Sodium Chloride 0.9% 10 ML Syringe FLUSH PRN (16:06)
[2022-10-28] MEDS ORDERED: Sodium Chloride 0.9% 1,000 ML IV ONE (16:50)
[2022-10-28] MEDS ORDERED: Metoclopramide 10 MG/2 ML SDV IVPUSH ONE (16:50)
[2022-10-28 16:51] LABS: CORONAVIRUS COVID-19 NAA NEGATIVE (NEGATIVE)
[2022-10-28 17:02] LABS: ANION GAP 16.2 mEq/L (7-13); CHLORIDE,CL 93 mmol/L (98-107); SODIUM,NA 133 mmol/L (136-145)
[2022-10-28 17:07] LABS: ESTIMATED GFR 17 mL/min (>=60)
[2022-10-28] MEDS ORDERED: Magnesium Sulfate/Water 2 GM in Premix Bag 1 BAG IV ONE (17:12)
[2022-10-28] MEDS ORDERED: Insulin Lispro Protamine/Lispro 75-25 100 Units/ML 10 ML Vial SUBCUT ONE (17:12)
[2022-10-28] MEDS ORDERED: 50% Dextrose in Water 50 ML Syringe IVPUSH PRN (17:12)
[2022-10-28] MEDS ORDERED: Glucagon,Human Recombinant 1 MG Vial IM PRN (17:12)
[2022-10-28] MEDS ORDERED: Scopolamine 1.5 MG Transdermal Patch TRDERM PRN (17:16)
[2022-10-28] MEDS ORDERED: Metoprolol Tartrate 5 MG/5 ML SDV IVPUSH ONE (17:29)
[2022-10-28] MEDS ORDERED: Scopolamine 1.5 MG Transdermal Patch TRDERM ONE (17:48)
[2022-10-28] MEDS ORDERED: Labetalol 20 MG/4 ML Syringe IVPUSH ONE (18:51)
[2022-10-28 19:12] VITALS: BP 160/77; PULSE 61
== END 2022-10-28 19:49 | disposition home or self-care (01) ==
LOC: DL.ED 15:13
DX: E11.65 Type 2 diabetes mellitus with hyperglycemia (principal); E78.00 Pure hypercholesterolemia, unspecified; I25.2 Old myocardial infarction; J45.909 Unspecified asthma, uncomplicated; K21.9 Gastro-esophageal reflux disease without esophagitis; I12.9 Hypertensive chronic kidney disease with stage 1 through stage 4 chronic kidney disease, or unspecified chronic kidney disease; E11.22 Type 2 diabetes mellitus with diabetic chronic kidney disease; N18.4 Chronic kidney disease, stage 4 (severe); Z88.8 Allergy status to other drugs, medicaments and biological substances; Z88.5 Allergy status to narcotic agent; Z88.7 Allergy status to serum and vaccine; Z91.041 Radiographic dye allergy status; Z91.048 Other nonmedicinal substance allergy status; Z88.0 Allergy status to penicillin; Z88.1 Allergy status to other antibiotic agents; Z79.4 Long term (current) use of insulin; Z79.899 Other long term (current) drug therapy; Z20.822 Contact with and (suspected) exposure to COVID-19
CPT/HCPCS: 0240U; 36415; 80053; 82947; 83605; 83735; 84145; 85025; 86140; 96365; 96366; 96375; 99284; J1815; J2765; J3475; J3490; J7030

== ENCOUNTER 2022-11-02 20:14 | Inpatient (IN) | payer MEDICARE, OTHER ==
[2022-11-02 20:41] LABS: ANION GAP 13.9 mEq/L (7-13); CHLORIDE,CL 100 mmol/L (98-107); ESTIMATED GFR 19 mL/min (>=60); SODIUM,NA 138 mmol/L (136-145)
[2022-11-02 20:48] LABS: AMPHETAMINES,URINE NEGATIVE (NEGATIVE); BARBITURATES,URINE NEGATIVE (NEGATIVE); BENZODIAZEPINE,URINE POSITIVE (NEGATIVE); MDMA (ECSTASY), URINE NEGATIVE (NEGATIVE); METHADONE,URINE NEGATIVE (NEGATIVE); METHAMPHETAMINES,URINE NEGATIVE (NEGATIVE); OPIATES,URINE NEGATIVE (NEGATIVE); OXYCODONE,URINE NEGATIVE (NEGATIVE); PHENCYCLIDINE,URINE POSITIVE (NEGATIVE); TCA,URINE NEGATIVE (NEGATIVE)
[2022-11-02] MEDS ORDERED: Potassium Chloride 20 MEQ in Premix Bag 1 BAG IV ONE (20:50)
[2022-11-02 20:56] LABS: CORONAVIRUS COVID-19 NAA NEGATIVE (NEGATIVE); RESPIRATORY SYNCYTIAL VIR NAA NEGATIVE (NEGATIVE)
[2022-11-02] MEDS: Magnesium Sulfate/Water 2 GM in Premix Bag 1 BAG IV ONE (21:29)
[2022-11-02] MEDS ORDERED: cefTRIAXone 1 GM Vial IVPUSH ONE (21:43)
[2022-11-02] MEDS ORDERED: Magnesium Sulfate/Water 2 GM in Premix Bag 1 BAG IV ONE (21:49)
[2022-11-02] MEDS ORDERED: Sodium Chloride 0.9% 10 ML Syringe FLUSH PRN (23:33)
[2022-11-02] MEDS ORDERED: HYDROmorphone 0.5 MG/0.5 ML Syringe IVPUSH PRN (23:33)
[2022-11-02] MEDS ORDERED: Magnesium Hydroxide 400 MG/5 ML Susp 30 ML Cup PO PRN (23:33)
[2022-11-02] MEDS ORDERED: Polyethylene Glycol 3350 Powder 17 GM Packet PO PRN (23:33)
[2022-11-02] MEDS ORDERED: Albuterol/Ipratropium 3.0-0.5 MG/3 ML Neb Soln NEB PRN (23:33)
[2022-11-02] MEDS ORDERED: Bisacodyl 5 MG Tab PO PRN (23:33)
[2022-11-02] MEDS ORDERED: Metoclopramide 10 MG/2 ML SDV IVPUSH PRN (23:39)
[2022-11-02] MEDS ORDERED: Labetalol 20 MG/4 ML Syringe IVPUSH PRN (23:40)
[2022-11-02] MEDS ORDERED: hydrALAZINE 20 MG/ML SDV IVPUSH PRN (23:42)
[2022-11-02] MEDS ORDERED: Glucagon,Human Recombinant 1 MG Vial IM PRN (23:43)
[2022-11-02] MEDS ORDERED: 50% Dextrose in Water 50 ML Syringe IVPUSH PRN (23:43)
[2022-11-02] MEDS ORDERED: Sodium Chloride 0.9% 500 ML IV SCH (23:45)
[2022-11-02] MEDS ORDERED: NACL IV SCH (23:45)
[2022-11-02] MEDS ORDERED: DEXTROSE IV SCH (23:45)
[2022-11-02] MEDS ORDERED: Acetaminophen/Butalbital/Caffeine 325-50-40 MG Tab PO PRN (23:46)
[2022-11-03] MEDS: Insulin Lispro 100 Units/ML 3 ML Vial SUBCUT SCH ×4 (01:00→17:05)
[2022-11-03] MEDS ORDERED: Potassium Chloride 20 MEQ in Premix Bag 1 BAG IV ONE ×2 (03:00→07:51)
[2022-11-03] MEDS ORDERED: Magnesium Sulfate/Water 2 GM in Premix Bag 1 BAG IV ONE (04:00)
[2022-11-03 07:14] LABS: ANION GAP 14.3 mEq/L (7-13)
[2022-11-03] MEDS: Sodium Chloride 0.9% 10 ML Syringe FLUSH SCH (09:55)
[2022-11-03] MEDS ORDERED: Potassium Chloride 10 MEQ Tab.ER PO ONE (11:00)
[2022-11-03] MEDS: cloNIDine 0.1 MG Tab PO SCH ×2 (16:05→20:52)
[2022-11-03] MEDS: hydrALAZINE 25 MG Tab PO SCH ×2 (16:06→20:52)
[2022-11-03] MEDS: Sodium Chloride 0.9% 1,500 ML IV SCH (20:57)
[2022-11-04] MEDS: Sodium Chloride 0.9% 10 ML Syringe FLUSH SCH ×3 (03:30→20:32)
[2022-11-04 07:18] LABS: ANION GAP 11.9 mEq/L (7-13)
[2022-11-04] MEDS: Insulin Lispro 100 Units/ML 3 ML Vial SUBCUT SCH ×3 (08:48→16:51)
[2022-11-04] MEDS: cloNIDine 0.1 MG Tab PO SCH ×3 (08:53→20:31)
[2022-11-04] MEDS: amLODIPine 5 MG Tab PO SCH (08:54)
[2022-11-04] MEDS: hydrALAZINE 25 MG Tab PO SCH ×3 (08:54→20:30)
[2022-11-04] MEDS: Calcitriol 0.25 MCG Cap PO SCH (08:54)
[2022-11-04] MEDS: Sodium Chloride 0.9% 1,500 ML IV SCH (13:33)
[2022-11-04] MEDS: Ferrous Sulfate 325 MG Tab PO SCH (17:43)
[2022-11-04] MEDS: Fenofibrate Nanocrystallized 145 MG Tab PO SCH (17:43)
[2022-11-04] MEDS: Ascorbic Acid 500 MG Tab PO SCH (20:31)
[2022-11-04] MEDS ORDERED: Venlafaxine 150 MG Cap.ER PO SCH (21:00)
[2022-11-04] MEDS ORDERED: Rosuvastatin 10 MG Tab PO SCH (21:00)
[2022-11-04] MEDS: Melatonin 3 MG Tab PO SCH (23:16)
[2022-11-05 07:51] LABS: ANION GAP 13.1 mEq/L (7-13)
[2022-11-05] MEDS: Calcitriol 0.25 MCG Cap PO SCH ×2 (08:30→10:10)
[2022-11-05] MEDS: Venlafaxine 150 MG Cap.ER PO SCH (08:30)
[2022-11-05] MEDS: amLODIPine 5 MG Tab PO SCH (08:30)
[2022-11-05] MEDS: cloNIDine 0.1 MG Tab PO SCH ×2 (08:30→21:26)
[2022-11-05] MEDS: Ferrous Sulfate 325 MG Tab PO SCH ×2 (08:30→17:27)
[2022-11-05] MEDS: hydrALAZINE 25 MG Tab PO SCH ×2 (08:31→21:26)
[2022-11-05] MEDS: Insulin Lispro 100 Units/ML 3 ML Vial SUBCUT SCH ×3 (08:37→17:29)
[2022-11-05] MEDS: Sodium Chloride 0.9% 10 ML Syringe FLUSH SCH ×2 (08:41→21:23)
[2022-11-05] MEDS: Omeprazole 20 MG Cap.CR PO SCH (16:06)
[2022-11-05] MEDS: Fenofibrate Nanocrystallized 145 MG Tab PO SCH (17:27)
[2022-11-05] MEDS: Melatonin 3 MG Tab PO SCH (21:25)
[2022-11-05] MEDS: Ascorbic Acid 500 MG Tab PO SCH (21:25)
[2022-11-06] MEDS: Omeprazole 20 MG Cap.CR PO SCH ×2 (05:01→16:07)
[2022-11-06 07:52] LABS: ANION GAP 16.7 mEq/L (7-13)
[2022-11-06] MEDS: Insulin Lispro 100 Units/ML 3 ML Vial SUBCUT SCH ×3 (08:47→17:12)
[2022-11-06] MEDS: Ferrous Sulfate 325 MG Tab PO SCH ×2 (08:50→17:11)
[2022-11-06] MEDS: Venlafaxine 150 MG Cap.ER PO SCH (11:17)
[2022-11-06] MEDS: hydrALAZINE 25 MG Tab PO SCH ×2 (11:17→20:42)
[2022-11-06] MEDS: cloNIDine 0.1 MG Tab PO SCH ×2 (11:17→20:42)
[2022-11-06] MEDS: amLODIPine 5 MG Tab PO SCH (11:18)
[2022-11-06] MEDS: Calcitriol 0.25 MCG Cap PO SCH (11:18)
[2022-11-06] MEDS: Sodium Chloride 0.9% 10 ML Syringe FLUSH SCH ×2 (12:43→20:43)
[2022-11-06] MEDS: Fenofibrate Nanocrystallized 145 MG Tab PO SCH (17:11)
[2022-11-06] MEDS: Melatonin 3 MG Tab PO SCH (20:42)
[2022-11-06] MEDS: Ascorbic Acid 500 MG Tab PO SCH (20:42)
[2022-11-06] MEDS: Acetaminophen 325 MG Tab PO PRN (21:49)
[2022-11-07] MEDS: Omeprazole 20 MG Cap.CR PO SCH ×2 (06:58→16:05)
[2022-11-07] MEDS: hydrALAZINE 25 MG Tab PO SCH ×2 (08:22→20:31)
[2022-11-07] MEDS: cloNIDine 0.1 MG Tab PO SCH ×2 (08:23→20:32)
[2022-11-07] MEDS: Ferrous Sulfate 325 MG Tab PO SCH ×2 (08:23→17:30)
[2022-11-07] MEDS: Calcitriol 0.25 MCG Cap PO SCH (08:23)
[2022-11-07] MEDS: amLODIPine 5 MG Tab PO SCH (08:24)
[2022-11-07] MEDS: Venlafaxine 150 MG Cap.ER PO SCH (08:25)
[2022-11-07] MEDS: Sodium Chloride 0.9% 10 ML Syringe FLUSH SCH ×2 (08:26→20:33)
[2022-11-07] MEDS: Insulin Lispro 100 Units/ML 3 ML Vial SUBCUT SCH ×3 (08:28→17:30)
[2022-11-07] MEDS: Isosorbide Mononitrate 30 MG Tab.ER PO SCH (16:05)
[2022-11-07] MEDS: Fenofibrate Nanocrystallized 145 MG Tab PO SCH (17:29)
[2022-11-07] MEDS: Ascorbic Acid 500 MG Tab PO SCH (20:32)
[2022-11-07] MEDS: Melatonin 3 MG Tab PO SCH (20:32)
[2022-11-08] MEDS: Acetaminophen 325 MG Tab PO PRN (05:35)
[2022-11-08] MEDS: Omeprazole 20 MG Cap.CR PO SCH (05:36)
[2022-11-08] MEDS: Isosorbide Mononitrate 30 MG Tab.ER PO SCH (05:36)
[2022-11-08 07:14] LABS: ANION GAP 11.6 mEq/L (7-13)
[2022-11-08] MEDS: Magnesium Sulfate/Water 2 GM in Premix Bag 1 BAG IV ONE ×3 (09:10→09:21)
[2022-11-08] MEDS: amLODIPine 5 MG Tab PO SCH (09:11)
[2022-11-08] MEDS: cloNIDine 0.1 MG Tab PO SCH (09:12)
[2022-11-08] MEDS: Ferrous Sulfate 325 MG Tab PO SCH (09:12)
[2022-11-08] MEDS: hydrALAZINE 25 MG Tab PO SCH (09:12)
[2022-11-08] MEDS: Venlafaxine 150 MG Cap.ER PO SCH (09:13)
[2022-11-08] MEDS ORDERED: Oxymetazoline 0.05% Nasal Spray 30 ML Bottle NASBOTH PRN (10:31)
[2022-11-08] MEDS: Insulin Lispro 100 Units/ML 3 ML Vial SUBCUT SCH ×2 (11:44→12:32)
[2022-11-08] MEDS: Sodium Chloride 0.9% 10 ML Syringe FLUSH SCH (12:00)
[2022-11-08 12:30] VITALS: BP 131/50; PULSE 77
== END 2022-11-08 15:05 | disposition home or self-care (01) | DRG 640 ==
LOC: DL.ED 20:14 → DL.MS 22:24
PROVIDERS: ADMIT Internal Medicine; ATTEND Internal Medicine
DX: N30.01 Acute cystitis with hematuria (principal); E87.6 Hypokalemia; G93.41 Metabolic encephalopathy; N18.4 Chronic kidney disease, stage 4 (severe); I13.0 Hypertensive heart and chronic kidney disease with heart failure and stage 1 through stage 4 chronic kidney disease, or unspecified chronic kidney disease; E11.65 Type 2 diabetes mellitus with hyperglycemia; E88.09 Other disorders of plasma-protein metabolism, not elsewhere classified; R11.2 Nausea with vomiting, unspecified; I12.9 Hypertensive chronic kidney disease with stage 1 through stage 4 chronic kidney disease, or unspecified chronic kidney disease; Z20.822 Contact with and (suspected) exposure to COVID-19; Z66 Do not resuscitate; T50.915A Adverse effect of multiple unspecified drugs, medicaments and biological substances, initial encounter; D72.829 Elevated white blood cell count, unspecified; E11.22 Type 2 diabetes mellitus with diabetic chronic kidney disease; K21.9 Gastro-esophageal reflux disease without esophagitis; R13.10 Dysphagia, unspecified; H54.7 Unspecified visual loss; Z91.041 Radiographic dye allergy status; Z79.4 Long term (current) use of insulin; Z79.899 Other long term (current) drug therapy; E78.5 Hyperlipidemia, unspecified; J30.9 Allergic rhinitis, unspecified; G40.909 Epilepsy, unspecified, not intractable, without status epilepticus; E83.42 Hypomagnesemia; M54.9 Dorsalgia, unspecified; G89.29 Other chronic pain; I50.9 Heart failure, unspecified; E78.00 Pure hypercholesterolemia, unspecified; H91.90 Unspecified hearing loss, unspecified ear; E55.9 Vitamin D deficiency, unspecified; G25.81 Restless legs syndrome; F41.9 Anxiety disorder, unspecified; F32.A Depression, unspecified; F90.9 Attention-deficit hyperactivity disorder, unspecified type; Z88.8 Allergy status to other drugs, medicaments and biological substances; I25.2 Old myocardial infarction; Z86.16 Personal history of COVID-19; Z88.0 Allergy status to penicillin; Z88.1 Allergy status to other antibiotic agents; Z88.5 Allergy status to narcotic agent; Z94.9 Transplanted organ and tissue status, unspecified
CPT/HCPCS: 0241U; 36415; 51702; 70450; 74176; 80048; 80053; 80305-QW; 80307; 81001; 82140; 82306; 82947; 83605; 83735; 84100; 84439; 84443; 84484; 85025; 86140; 87040; 92610-GN; 96365; 96368; 96376; 97161-GP; 97165-GO; 99223; 99232; 99233; 99238; 99285-25; A9270-GY; J0360; J1815-GY; J3475; J3480; J3490; J7030; J7040; J7042

== ENCOUNTER 2023-02-11 17:56 | Inpatient (IN) | payer MEDICARE, OTHER ==
[2023-02-11] MEDS ORDERED: amLODIPine 5 MG Tab PO ONE (20:23)
[2023-02-11] MEDS ORDERED: hydrALAZINE 25 MG Tab PO ONE (20:25)
[2023-02-11] MEDS ORDERED: Nitrofurantoin Monohydrate/Macrocrystalline 100 MG Cap PO ONE (20:25)
[2023-02-11] MEDS ORDERED: Sodium Chloride 0.9% 1,000 ML IV ONE (20:49)
[2023-02-11] MEDS ORDERED: Magnesium Sulfate/Water 2 GM in Premix Bag 1 BAG IV ONE (22:24)
[2023-02-11] MEDS ORDERED: Albuterol/Ipratropium 3.0-0.5 MG/3 ML Neb Soln NEB PRN (22:41)
[2023-02-11] MEDS ORDERED: Acetaminophen 325 MG Tab PO PRN (22:41)
[2023-02-11] MEDS ORDERED: Ondansetron 4 MG/2 ML SDV IVPUSH PRN (22:41)
[2023-02-11] MEDS ORDERED: Metoclopramide 10 MG Tab PO PRN (22:55)
[2023-02-11] MEDS ORDERED: Nitroglycerin 0.4 MG Tab.SL SL PRN (22:56)
[2023-02-11] MEDS ORDERED: 50% Dextrose in Water 50 ML Syringe IVPUSH PRN (23:22)
[2023-02-11] MEDS ORDERED: Glucagon,Human Recombinant 1 MG Vial IM PRN (23:22)
[2023-02-11] MEDS ORDERED: Metoprolol Tartrate 5 MG/5 ML SDV IVPUSH PRN (23:27)
[2023-02-11] MEDS ORDERED: cloNIDine 0.1 MG Tab PO ONE (23:28)
[2023-02-11] MEDS ORDERED: Dextrose 5%-0.9% NaCl 1,000 ML IV SCH (23:30)
[2023-02-12] MEDS: hydrALAZINE 20 MG/ML SDV IVPUSH PRN ×2 (00:03→05:42)
[2023-02-12] MEDS ORDERED: LORazepam 0.5 MG Tab PO ONE ×2 (01:35→23:37)
[2023-02-12] MEDS ORDERED: Magnesium Sulfate/Water 2 GM in Premix Bag 1 BAG IV ONE (04:00)
[2023-02-12 06:59] LABS: ANION GAP 15.9 mEq/L (7-13)
[2023-02-12] MEDS ORDERED: Insulin Lispro 100 Units/ML 3 ML Vial SUBCUT SCH (08:00)
[2023-02-12] MEDS ORDERED: cloNIDine 0.1 MG Tab PO SCH (09:00)
[2023-02-12] MEDS ORDERED: amLODIPine 5 MG Tab PO SCH (09:00)
[2023-02-12] MEDS: Metoclopramide 10 MG/2 ML SDV IVPUSH PRN ×2 (09:05→16:23)
[2023-02-12] MEDS: Isosorbide Mononitrate 60 MG Tab.ER PO SCH ×2 (11:10→16:28)
[2023-02-12] MEDS: amLODIPine 5 MG Tab PO SCH (11:10)
[2023-02-12] MEDS: Omeprazole 20 MG Cap.CR PO SCH ×2 (11:10→16:23)
[2023-02-12] MEDS: cloNIDine 0.1 MG Tab PO SCH ×2 (11:11→19:59)
[2023-02-12] MEDS: hydrALAZINE 25 MG Tab PO SCH ×2 (11:11→19:59)
[2023-02-12] MEDS: Dextrose 5%-0.9% NaCl 1,000 ML IV SCH (12:03)
[2023-02-12] MEDS: Venlafaxine 150 MG Cap.ER PO SCH (12:03)
[2023-02-12] MEDS: Insulin Lispro 100 Units/ML 3 ML Vial SUBCUT SCH ×3 (12:14→23:47)
[2023-02-12] MEDS: Sodium Bicarbonate 650 MG Tab PO SCH (20:38)
[2023-02-13] MEDS: Omeprazole 20 MG Cap.CR PO SCH ×2 (06:04→15:41)
[2023-02-13] MEDS: Isosorbide Mononitrate 60 MG Tab.ER PO SCH ×2 (06:04→15:41)
[2023-02-13] MEDS: Insulin Lispro 100 Units/ML 3 ML Vial SUBCUT SCH ×4 (06:09→20:50)
[2023-02-13 07:04] LABS: ANION GAP 15.5 mEq/L (7-13)
[2023-02-13] MEDS: hydrALAZINE 25 MG Tab PO SCH ×2 (09:16→20:43)
[2023-02-13] MEDS: cloNIDine 0.1 MG Tab PO SCH ×2 (09:17→20:44)
[2023-02-13] MEDS: Calcitriol 0.25 MCG Cap PO SCH (09:18)
[2023-02-13] MEDS: Venlafaxine 150 MG Cap.ER PO SCH (09:18)
[2023-02-13] MEDS: Sodium Bicarbonate 650 MG Tab PO SCH ×2 (09:18→20:42)
[2023-02-13] MEDS: amLODIPine 5 MG Tab PO SCH (09:22)
[2023-02-13] MEDS ORDERED: GI Cocktail Oral Solution 30 ML PO ONE (10:25)
[2023-02-13] MEDS: Dextrose 5%-0.9% NaCl 1,000 ML IV SCH (15:54)
[2023-02-13] MEDS: LORazepam 0.5 MG Tab PO PRN (20:53)
[2023-02-13] MEDS ORDERED: Melatonin 3 MG Tab PO PRN (20:57)
[2023-02-14] MEDS: hydrALAZINE 20 MG/ML SDV IVPUSH PRN (02:26)
[2023-02-14] MEDS: Omeprazole 20 MG Cap.CR PO SCH ×2 (06:22→16:55)
[2023-02-14] MEDS: Isosorbide Mononitrate 60 MG Tab.ER PO SCH ×2 (06:22→16:55)
[2023-02-14 06:55] LABS: ANION GAP 14.7 mEq/L (7-13)
[2023-02-14] MEDS: Insulin Lispro 100 Units/ML 3 ML Vial SUBCUT SCH ×4 (08:58→21:13)
[2023-02-14] MEDS: Sodium Bicarbonate 650 MG Tab PO SCH ×2 (08:59→21:16)
[2023-02-14] MEDS: cloNIDine 0.1 MG Tab PO SCH ×2 (08:59→21:16)
[2023-02-14] MEDS: hydrALAZINE 25 MG Tab PO SCH ×2 (08:59→21:16)
[2023-02-14] MEDS: Calcitriol 0.25 MCG Cap PO SCH (08:59)
[2023-02-14] MEDS: amLODIPine 5 MG Tab PO SCH (09:00)
[2023-02-14] MEDS: Venlafaxine 150 MG Cap.ER PO SCH (09:00)
[2023-02-14] MEDS: Dextrose 5%-0.9% NaCl 1,000 ML IV SCH (20:57)
[2023-02-14] MEDS: LORazepam 0.5 MG Tab PO PRN (21:49)
[2023-02-14] MEDS: Sodium Chloride 0.9% 10 ML Syringe FLUSH PRN (21:51)
[2023-02-15] MEDS: hydrALAZINE 20 MG/ML SDV IVPUSH PRN (01:04)
[2023-02-15] MEDS: Omeprazole 20 MG Cap.CR PO SCH ×2 (05:41→16:16)
[2023-02-15] MEDS: Isosorbide Mononitrate 60 MG Tab.ER PO SCH ×2 (05:41→16:16)
[2023-02-15 06:13] LABS: ANION GAP 14.9 mEq/L (7-13)
[2023-02-15] MEDS ORDERED: Magnesium Sulfate/Water 2 GM in Premix Bag 1 BAG IV ONE ×2 (07:48→18:00)
[2023-02-15] MEDS: Insulin Lispro 100 Units/ML 3 ML Vial SUBCUT SCH ×4 (07:50→21:27)
[2023-02-15] MEDS: Metoclopramide 10 MG/2 ML SDV IVPUSH PRN (08:42)
[2023-02-15] MEDS: Venlafaxine 150 MG Cap.ER PO SCH (11:25)
[2023-02-15] MEDS: Calcitriol 0.25 MCG Cap PO SCH (11:26)
[2023-02-15] MEDS: amLODIPine 5 MG Tab PO SCH (11:26)
[2023-02-15] MEDS: Sodium Bicarbonate 650 MG Tab PO SCH ×2 (11:26→21:28)
[2023-02-15] MEDS: cloNIDine 0.1 MG Tab PO SCH ×2 (11:27→21:28)
[2023-02-15] MEDS: hydrALAZINE 25 MG Tab PO SCH ×3 (11:28→21:28)
[2023-02-15] MEDS ORDERED: cloNIDine 0.1 MG Tab PO ONE (12:00)
[2023-02-15] MEDS: Sodium Chloride 0.9% 10 ML Syringe FLUSH PRN (17:06)
[2023-02-16] MEDS: hydrALAZINE 20 MG/ML SDV IVPUSH PRN ×2 (01:38→05:30)
[2023-02-16] MEDS: Isosorbide Mononitrate 60 MG Tab.ER PO SCH (05:21)
[2023-02-16] MEDS: Omeprazole 20 MG Cap.CR PO SCH (05:21)
[2023-02-16 08:22] VITALS: PULSE 70
[2023-02-16] MEDS: Insulin Lispro 100 Units/ML 3 ML Vial SUBCUT SCH (08:24)
[2023-02-16] MEDS: Sodium Bicarbonate 650 MG Tab PO SCH (08:25)
[2023-02-16] MEDS: Venlafaxine 150 MG Cap.ER PO SCH (08:25)
[2023-02-16] MEDS: Calcitriol 0.25 MCG Cap PO SCH (08:25)
[2023-02-16] MEDS: amLODIPine 5 MG Tab PO SCH (08:25)
[2023-02-16] MEDS: cloNIDine 0.1 MG Tab PO SCH (08:25)
[2023-02-16 08:26] VITALS: BP 152/65
[2023-02-16] MEDS: hydrALAZINE 25 MG Tab PO SCH (08:26)
== END 2023-02-16 11:00 | disposition home or self-care (01) | DRG 682 ==
LOC: DL.ED 17:56 → DL.MS 22:07
PROVIDERS: ADMIT Internal Medicine; ATTEND Internal Medicine
DX: N17.9 Acute kidney failure, unspecified (principal); G93.41 Metabolic encephalopathy; E87.20 Acidosis, unspecified; I12.0 Hypertensive chronic kidney disease with stage 5 chronic kidney disease or end stage renal disease; E78.5 Hyperlipidemia, unspecified; J45.909 Unspecified asthma, uncomplicated; K21.9 Gastro-esophageal reflux disease without esophagitis; E11.9 Type 2 diabetes mellitus without complications; G89.29 Other chronic pain; M54.9 Dorsalgia, unspecified; D50.9 Iron deficiency anemia, unspecified; D63.8 Anemia in other chronic diseases classified elsewhere; F41.9 Anxiety disorder, unspecified; F32.A Depression, unspecified; Z66 Do not resuscitate; F98.8 Other specified behavioral and emotional disorders with onset usually occurring in childhood and adolescence; H91.90 Unspecified hearing loss, unspecified ear; N18.6 End stage renal disease; E11.22 Type 2 diabetes mellitus with diabetic chronic kidney disease; M54.50 Low back pain, unspecified; G40.909 Epilepsy, unspecified, not intractable, without status epilepticus; D63.1 Anemia in chronic kidney disease; G25.81 Restless legs syndrome; E11.65 Type 2 diabetes mellitus with hyperglycemia; E83.42 Hypomagnesemia; E83.39 Other disorders of phosphorus metabolism; Z98.890 Other specified postprocedural states; I25.2 Old myocardial infarction; Z79.4 Long term (current) use of insulin; Z79.899 Other long term (current) drug therapy; Z88.8 Allergy status to other drugs, medicaments and biological substances; Z88.0 Allergy status to penicillin; Z93.3 Colostomy status; Z90.710 Acquired absence of both cervix and uterus; Z90.721 Acquired absence of ovaries, unilateral; Z88.5 Allergy status to narcotic agent
CPT/HCPCS: 36415; 71045; 80053; 81001; 82947; 83735; 84100; 85014; 85018; 85025; 85651; 86140; 92610-GN; 97165-GO; A9270-GY; J0360; J1815-GY; J2765; J3475; J3490; J7030; J7042

== ENCOUNTER 2023-04-11 15:07 | Emergency (ER) | payer MEDICARE, OTHER ==
[2023-04-11] MEDS ORDERED: Sodium Chloride 0.9% 10 ML Syringe FLUSH PRN (15:20)
[2023-04-11 15:24] VITALS: BP 189/88; PULSE 98
[2023-04-11 15:51] LABS: BASOPHILS PERCENT AUTO 0.2 % (0.0-1.0); EOSINOPHILS PERCENT AUTO 0.7 % (1.0-3.0); HEMATOCRIT 25.1 % (37.0-47.0); HEMOGLOBIN 8.3 g/dL (12.0-16.0); LYMPHOCYTES PERCENT AUTO 12.7 % (20.5-50.1); MEAN CORPUSCULAR HEMOGLOBIN 30.7 pg (27.0-34.0); MEAN CORPUSCULAR HGB CONC 33.1 g/dL (33.0-35.0); MONOCYTES PERCENT AUTO 5.1 % (2-8); NEUTROPHILS PERCENT AUTO 81.3 % (42.2-75.2); PLATELET COUNT,PLT 341 10^3/uL (150-450); WHITE BLOOD CELL COUNT,WBC 12.9 10^3/uL (5.0-10.0)
[2023-04-11 16:03] LABS: APPEARANCE,URINE CLEAR (CLEAR); BILIRUBIN,URINE NEGATIVE (NEGATIVE); COLOR,URINE YELLOW (YELLOW); GLUCOSE,URINE 500 (NEGATIVE); KETONES,URINE NEGATIVE (NEGATIVE); LEUKOCYTE ESTERASE,URINE NEGATIVE (NEGATIVE); NITRITE,URINE NEGATIVE (NEGATIVE); OCCULT BLOOD,URINE NEGATIVE (NEGATIVE); PROTEIN,URINE >=300 (NEGATIVE); UROBILINOGEN,URINE 0.2 mg/dL (0.2-1.0)
[2023-04-11 16:08] LABS: PROTHROMBIN TIME 10.6 SEC (9.0-12.0)
[2023-04-11 16:11] LABS: AMORPHOUS SEDIMENT,URINE RARE /HPF (NOT SEEN); BACTERIA,URINE MANY /HPF (0-FEW/HPF); EPITHELIAL CELLS,URINE FEW /HPF (NOT SEEN); MUCUS,URINE FEW /LPF (NOT SEEN); RBC,URINE 0-5 /HPF (0-5)
[2023-04-11 16:17] LABS: B-TYPE NATRIURETIC PEPTIDE,BNP 1820 pg/ml (0-100)
[2023-04-11 16:24] LABS: ALANINE AMINOTRANSFERASE,ALT 23 U/L (14-59); ALBUMIN 2.8 g/dL (3.4-5.0); ALKALINE PHOSPHATASE 33 U/L (46-116); AMYLASE 62 U/L (25-115); ANION GAP 13.9 mEq/L (7-13); ASPARTATE AMNIOTRANSFERASE,AST 24 U/L (15-37); BILIRUBIN TOTAL 0.2 mg/dL (0.2-1.0); BLOOD UREA NITROGEN,BUN 49 mg/dL (7-18); CARBON DIOXIDE,CO2 25 mmol/L (21-32); CHLORIDE,CL 103 mmol/L (98-107); CREATININE 2.88 mg/dL (0.55-1.02); EST CRCL DRUG DOSING (CG) 11.19 mL/min; GLUCOSE RANDOM 259 mg/dL (70-99); LIPASE 255 U/L (73-393); MAGNESIUM 0.9 mg/dL (1.8-2.4); POTASSIUM,K 3.9 mmol/L (3.5-5.1); PROTEIN TOTAL,TP 5.5 g/dL (6.4-8.2); SODIUM,NA 138 mmol/L (136-145); TSH ULTRASENSITIVE 3.97 uIU/mL (0.36-3.74)
[2023-04-11 16:25] LABS: A/G RATIO 1.04; ESTIMATED GFR 16 mL/min (>=60)
[2023-04-11 16:27] LABS: C-REACTIVE PROTEIN < 0.2 mg/dL (0.0-0.9)
[2023-04-11] MEDS ORDERED: Furosemide 100 MG/10 ML SDV IVPUSH ONE (16:44)
== END 2023-04-11 18:36 | disposition home or self-care (01) ==
LOC: DL.ED 15:07
DX: I13.0 Hypertensive heart and chronic kidney disease with heart failure and stage 1 through stage 4 chronic kidney disease, or unspecified chronic kidney disease (principal); I50.9 Heart failure, unspecified; N18.4 Chronic kidney disease, stage 4 (severe); I25.2 Old myocardial infarction; E78.00 Pure hypercholesterolemia, unspecified; J45.909 Unspecified asthma, uncomplicated; K21.9 Gastro-esophageal reflux disease without esophagitis; E11.22 Type 2 diabetes mellitus with diabetic chronic kidney disease; E78.5 Hyperlipidemia, unspecified; Z86.16 Personal history of COVID-19; Z79.899 Other long term (current) drug therapy; Z88.8 Allergy status to other drugs, medicaments and biological substances; Z91.041 Radiographic dye allergy status; Z91.048 Other nonmedicinal substance allergy status; Z88.1 Allergy status to other antibiotic agents
CPT/HCPCS: 36415; 71045; 80053; 81001; 82150; 83605; 83690; 83735; 83880; 84443; 84484; 85025; 85610; 86140; 93005; 93010; 96374; 99285; 99285-25; J1940; J3490